=== PATIENT | male | born 1975 | race Asian ===

== ENCOUNTER → 2016-10-22 | Outpatient (CLI) | payer OTHER ==
--- NOTE | 2016-10-22 13:05 | KCIC ---
CHEST AP ONLY History: TB exposure Comparison: May 19, 2014 Findings: There is no infiltrate, pneumothorax, or effusion. The pericardial cardiac silhouette is within normal limits in size. No new osseous abnormality is identified. Impression: 1. There is no evidence of acute cardiopulmonary disease, no radiographic findings suggestive of active tuberculosis. Electronically signed by: Raudel Long MD (10/22/2016 1:01 PM)
== END | disposition home or self-care (01) ==
LOC: KCIC 12:00
PROVIDERS: ATTEND Family Medicine
DX: Z20.1 Contact with and (suspected) exposure to tuberculosis (principal)
CPT/HCPCS: 71010

== ENCOUNTER 2021-03-02 12:03 | Emergency (ER) | payer OTHER ==
[~2021-03-02] VITALS: Ht 152.4 cm; Wt 54.4 kg
[2021-03-02] MEDS ORDERED: diphenhydrAMINE 50 MG/ML VIAL IM ONE (14:00)
[2021-03-02] MEDS ORDERED: DEXAMETHASONE SOD PHOS 20 MG/5 ML VIAL. IM ONE (14:00)
[2021-03-02 15:07] VITALS: BP 112/74
--- NOTE | 2021-03-02 15:24 | PHYS DOC ---
Past Medical History Past Surgical History: Other Additional Past Surgical Histo: HERNIATED DISC BACK Smoking Status: Former Smoker Alcohol Use: None General Adult EDM: Chief Complaint: SKIN RASH/ABSCESS HPI: HPI: Patient is a 45 year old Nigerian only speaking male who presents with 1 day history of pruritic rash from his chest down to his toes. Patient denies any pain, burning associated with the rash. He states that it started on his back last night and then spread to the rest of his body. Patient denies working outside, has not been around any outdoor plants, has not used any new soaps or lotions, and has not eaten any new foods. He denies shortness of breath, difficulty breathing, dysphagia, sore throat, facial swelling, abdominal pain, N/V/D. Patient reports this happened 5 years ago, he was treated with steroids successfully. History was obtained with assistance of medical reviewer via blue phone. Review of Systems: Review of Systems: Constitutional: Denies fever or chills. Eyes: Denies change in visual acuity, discharge or eye pain. HENT: See HPI Respiratory: See HPI Cardiovascular: Denies chest pain or edema. GI: See HPI Musculoskeletal: Denies back pain or joint pain. Integument: See HPI Neurologic: Denies headache, focal weakness or sensory changes. Heart Score: C/O Chest Pain: No Current Medications: Current Medications Medications (Trade) Dose Ordered Sig/Roxanne Start Time Stop Time Status Last Admin Dose Admin Dexamethasone Sodium Phosphate (Decadron) 10 mg 1X ONCE 03/02/21 14:00 03/02/21 14:01 DC 03/02/21 14:11 10 MG Diphenhydramine HCl (Benadryl) 25 mg 1X ONCE 03/02/21 14:00 03/02/21 14:01 DC 03/02/21 14:10 25 MG Allergies: Allergies: Allergies Coded Allergies Type Severity Reaction Last Updated Verified No Known Drug Allergies 03/02/21 No Physical Exam: PE: Constitutional: Well developed, well nourished, no acute distress, non-toxic appearance. HENT: Normocephalic, atraumatic, bilateral external ears normal, oropharynx moist, no oral exudates, nose normal. Eyes: PERRLA, EOMI, conjunctiva normal, no discharge. Neck: Normal range of motion, no tenderness, supple, no stridor. Cardiovascular: Heart rate regular rhythm, no murmur. Lungs & Thorax: Bilateral breath sounds clear to auscultation. Skin: Slightly raised and erythematous maculopapular rash with confluence extends from chest and upper back down to the ankles, sparing face as well as palms and soles. Rash is blanching without scaling or flaking. Current Patient Data: Vital Signs: Vital Signs Date Time Temp Pulse Resp B/P (MAP) Pulse Ox O2 Delivery O2 Flow Rate FiO2 03/02/21 14:12 61 17 111/74 (86) 100 Room Air 03/02/21 13:05 98.0 98.0 Course & Med Decision Making: Course & Med Decision Making Pertinent Labs and Imaging studies reviewed. (See chart for details) Patient presentation is consistent with acute allergic urticarial eruption. Dragon Disclaimer: Dragon Disclaimer: This electronic medical record was generated, in whole or in part, using a voice recognition dictation system. Departure Departure Impression: Primary Impression: Acute urticaria Disposition: HOME / SELF CARE / HOMELESS Condition: STABLE Referrals: ADRIAN GONZALEZ MD (PCP) Patient Instructions: Michelle, [id number] Additional Instructions: Benadryl 50 mg (2 tablets) each night for 5 days. Return to the emergency department if your symptoms get worse or you develop new symptoms. RADHA WOODALL Mar 02, 2021 15:24
== END 2021-03-02 15:38 | disposition home or self-care (01) ==
LOC: ER 12:03
DX: L50.9 Urticaria, unspecified (principal); Z87.891 Personal history of nicotine dependence
CPT/HCPCS: 96372; 99285; J1100; J1200